=== PATIENT | male | born 1970 | race Caucasian/White ===

== ENCOUNTER → 2022-11-28 10:29 | Outpatient (CLI) | payer OTHER, SELFPAY ==
--- NOTE | 2022-11-28 | DI.MRI.S_ITS ---
PROCEDURE: MR LUMBAR SPINE WO CON INDICATIONS: Low back pain, unspecified TECHNIQUE: Noncontrast sagittal T1 spin echo and T2 fast echo, sagittal STIR, and T2 fast spin echo through the lumbar spine. In cases with scoliosis, additional coronal T2 fast spin echo may be performed. COMPARISON: None. FINDINGS: Image quality: Excellent. Alignment and Curvature: There is 4 mm retrolisthesis of L5 on S1, 2 mm retrolisthesis of L3 on L4. Bone Marrow: Marrow is of normal overall signal. Focus of increased T1 and T2 signal is present at L1 suggestive of hemangioma. No acute vertebral body compression fractures. Spinal Cord: Conus medullaris terminates at the L1 level. Visualized cord demonstrates normal signal and size. Paraspinous Soft Tissues: No paravertebral masses. Discs: Mild multilevel disc desiccation. T12-L1: No disc bulge, spinal stenosis or foraminal narrowing. L1-L2: No disc bulge, spinal stenosis or foraminal narrowing. L2-L3: No disc bulge, spinal stenosis or foraminal narrowing. L3-L4: Minimal disc bulge without spinal stenosis. Moderate to severe right foraminal narrowing with facet and ligamentum flavum hypertrophy. L4-L5: Mild disc bulge with minimal effacement of the anterior thecal sac. Moderate bilateral foraminal narrowing with facet and ligamentum flavum hypertrophy. L5-S1: Minimal disc bulge without spinal stenosis. Severe right and moderate left foraminal narrowing with facet and ligamentum flavum hypertrophy. IMPRESSION: Multilevel foraminal narrowing most severe at L5-S1 with effacement of the exiting right L5 nerve root. Dictated by: Alley Collazo M.D. on 11/28/2022 at 15:25 Approved by: Alley Collazo M.D. on 11/28/2022 at 16:11
== END ==
PROVIDERS: Referring Provider Orthopaedic Surgery; Visit Provider Orthopaedic Surgery
DX: M48.07 Spinal stenosis, lumbosacral region (principal); M48.061 Spinal stenosis, lumbar region without neurogenic claudication; M54.50 Low back pain, unspecified
CPT/HCPCS: 72148